=== PATIENT | male | born 1995 | race Caucasian/White ===

== ENCOUNTER 2017-01-18 06:45 | Emergency (ER) | payer SELFPAY ==
[~2017-01-18] VITALS: Ht 182.9 cm; Wt 75.0 kg
[~2017-01-18 06:45] MED LIST: AUGMENTIN875 MG PO; FLONASE16 G1 BOTH NARES; NAPROSYN500 MG PO; TORADOL10 MG PO; VALIUM2 MG PO; ZITHROMAX Z-PA250 MG PO
[2017-01-18 07:22] LABS: BASOPHIL COUNT 0.1 K/uL (0-0.1); EOSINOPHIL (%) 0.4 % (0-5); EOSINOPHIL COUNT 0.1 K/uL (0-0.3); HEMATOCRIT 46.2 % (38.0-50.0); IMMATURE GRANULOCYTE (%) 0.5 % (0.0-0.7); IMMATURE GRANULOCYTE COUNT 0.1 K/uL; INSTRUMENT ABS NEUTROPHIL CT 16.9 K/uL; LYMPHOCYTE COUNT 1.1 K/uL (1.0-2.8); MCH 30.6 PG (29.0-34.0); MCHC 34.2 G/DL (30.0-36.0); MCV 89.5 FL (86-99); MEAN PLAT.VOLUME 10.2 uM^3 (9.0-12.4); MONOCYTE (%) 4.8 % (3-12); MONOCYTE COUNT 0.9 K/uL (0-0.8); NEUTROPHIL (%) 88.4 % (45-76); NEUTROPHIL COUNT 16.9 K/uL (1.8-6.4); PLATELET COUNT 284 K/uL (156-360); RBC DIS.WIDTH-CV 12.3 % (11.8-14.6); RBC DIS.WIDTH-SD 40.3 % (39-53); RED BLOOD COUNT 5.16 M/uL (4.00-5.50); WHITE BLOOD COUNT 19.1 K/uL (4.1-10.2)
[2017-01-18 08:18] LABS: CHLORIDE 106 mEq/L (99-109); POTASSIUM 4.2 mEq/L (3.7-5.4); SODIUM 139 mEq/L (136-147)
[2017-01-18 08:20] LABS: GLUCOSE 122 mg/dL (70-99)
[2017-01-18 08:21] LABS: ANION GAP 15 MEQ/L (2-14)
[2017-01-18 08:24] LABS: GFR ESTIMATE (CALCULATED) > 59 mL/min/
[2017-01-18 08:25] LABS: UREA NITROGEN (BUN) 11 mg/dL (9-23)
[2017-01-18 10:06] LABS: ADD MIUA? NO; BILIRUBIN NEGATIVE; BLOOD NEGATIVE; COLOR YELLOW ((YELLOW)); GLUCOSE (STRIP) NEGATIVE; KETONES 80; LEUKOCYTES NEGATIVE; NITRITE NEGATIVE; PROTEIN (STRIP) 30; SPECIFIC GRAVITY 1.032 (1.000-1.030); UCUL ADDED? NO; UROBILINOGEN 0.2 MG/DL (0.2-1.0)
[2017-01-18] MEDS ORDERED: ANTIVERT25 MG PO (10:26)
[2017-01-18] MEDS ORDERED: ZITHROMAX Z-PA250 MG PO (10:26)
[2017-01-18 10:34] VITALS: BP 121/65
== END 2017-01-18 10:35 | disposition home or self-care (01) ==
LOC: EME 06:45
PROVIDERS: Emergency Medicine
DX: R42 Dizziness and giddiness (principal); J20.9 Acute bronchitis, unspecified; D72.829 Elevated white blood cell count, unspecified; F17.200 Nicotine dependence, unspecified, uncomplicated
CPT/HCPCS: 70450; 71020; 80048; 81003; 85025; 93005; 99281; 99285; J2405; J7030

== ENCOUNTER 2017-07-10 10:44 | Emergency (ER) | payer SELFPAY ==
[~2017-07-10] VITALS: Ht 182.9 cm; Wt 63.3 kg
[~2017-07-10 10:44] MED LIST changes: +ANTIVERT25 MG PO
[2017-07-10] MEDS ORDERED: NAPROSYN500 MG PO (14:46)
[2017-07-10 15:06] VITALS: BP 118/72
== END 2017-07-10 15:07 | disposition home or self-care (01) ==
LOC: EME 10:44
DX: M94.0 Chondrocostal junction syndrome [Tietze] (principal); F17.200 Nicotine dependence, unspecified, uncomplicated
CPT/HCPCS: 71020; 93005; 99281; 99284